=== PATIENT | female | born 1960 | race African-American/Black ===

== ENCOUNTER 2023-11-01 12:06 | Inpatient (IN) | payer BC ==
[2023-11-01] VITALS (37 sets, daily range): BP systolic 66–140; BP diastolic 52–119; PULSE 52–90; RESP 11–30; TEMP 98–98.6; O2SAT 99
[~2023-11-01] VITALS: Ht 170.2 cm; Wt 74.4 kg
[2023-11-01] MEDS ORDERED: NITROGLYCERIN 0.4MG TABLET SL SL PRN (12:30)
[2023-11-01] MEDS ORDERED: HEPARIN 1000 UNITS/ML 10ML ONE ×2 (12:37→12:55)
[2023-11-01] MEDS ORDERED: IODIXANOL 320MG/ML 100 ML BOTTLE IV ONE (12:37)
[2023-11-01] MEDS ORDERED: LIDOCAINE HCL 1% 10 MG/ML 10ML VIAL ONE (12:37)
[2023-11-01 12:40] LABS: HEMATOCRIT. 41.3 % (36.0-48.0); HEMOGLOBIN. 13.1 g/dL (12.0-16.0); MEAN CORPUSCULAR HEMOGLOBIN 23.7 pg (28.0-32.0); MEAN CORPUSCULAR HGB CONC 31.8 g/dL (31.0-37.0); MEAN CORPUSCULAR VOLUME 74.5 fL (81.0-99.0); MEAN PLATELET VOLUME 7.4 fl (7.4-10.4); PLATELET 537 x1000/uL (130-400); RED BLOOD CELL COUNT 5.55 mill/uL (4.2-5.4); RED CELL DISTRIBUTION WIDTH 19.2 % (11.6-14.6); WHITE BLOOD COUNT 12.2 x1000/uL (4.5-11.0)
[2023-11-01 12:41] LABS: DIFFERENTIAL COMMENT 1
[2023-11-01] MEDS: ONDANSETRON HCL 4MG/2ML INJ IV STA (12:41)
[2023-11-01] MEDS: HEPARIN 5000 UNITS/ML VIAL IV ONE (12:41)
[2023-11-01] MEDS: MORPHINE SULFATE 4 MG/ML CPJ (NOT FOR IM USE) IV STA (12:41)
[2023-11-01] MEDS: ASPIRIN 325MG EC TABLET PO ONE (12:41)
[2023-11-01] MEDS ORDERED: ATROPINE SULFATE 1MG/10ML SYR ONE (12:51)
[2023-11-01] MEDS ORDERED: EPINEPHRINE 0.1MG/ML (1:10,000) 10ML SYR ONE ×2 (12:51→13:26)
[2023-11-01] MEDS ORDERED: FENTANYL CITRATE/PF 50MCG/ML 2ML VIAL ONE (13:03)
[2023-11-01] MEDS ORDERED: MIDAZOLAM HCL 2 MG/2 ML VIAL ONE (13:03)
[2023-11-01 13:08] LABS: ALANINE AMINOTRANSFERASE < 7 IU/L (10-49); ASPARTATE AMINOTRANSFERASE 9 IU/L (<34); BILIRUBIN TOTAL 0.9 mg/dL (0.1-1.0); CALCIUM 9.6 mg/dL (8.7-10.4); CARBON DIOXIDE 24 mEq/L (21-32); CHLORIDE 106 mEq/L (98-107); CREATININE 0.6 mg/dL (0.6-1.0); GLUCOSE 221 mg/dL (70-105); PROTEIN TOTAL 7.5 g/dL (6.0-8.3); SODIUM 136 mEq/L (136-145); UREA NITROGEN BLOOD 7 mg/dL (9-23)
[2023-11-01 13:20] LABS: TROPONIN I HIGH SENSITIVITY 118 ng/L (3.0-34)
[2023-11-01] MEDS ORDERED: EPTIFIBATIDE 2 MG/ML 10ML VIAL IV ONE ×2 (13:26→13:44)
[2023-11-01] MEDS ORDERED: AMIODARONE HCL 50MG/ML 3ML VIAL IV ONE (13:30)
[2023-11-01] MEDS ORDERED: ATROPINE SULFATE 1MG/10ML SYR IV PRN (13:45)
[2023-11-01] MEDS ORDERED: ACETAMINOPHEN 325MG TABLET PO PRN ×3 (13:45→22:15)
[2023-11-01] MEDS ORDERED: EPTIFIBATIDE 100 ML IV SCH (13:45)
[2023-11-01] MEDS ORDERED: ASPIRIN 81MG TABLET PO NR (13:45)
[2023-11-01] MEDS ORDERED: ONDANSETRON HCL 4MG/2ML INJ IV PRN ×2 (13:45→22:15)
[2023-11-01] MEDS ORDERED: MORPHINE SULFATE 2 MG/ML CPJ (NOT FOR IM USE) IV PRN (13:45)
[2023-11-01] MEDS ORDERED: CARVEDILOL 3.125 MG TABLET PO NR (14:00)
[2023-11-01] MEDS ORDERED: TICAGRELOR 90 MG TABLET PO ONE (14:08)
[2023-11-01] MEDS ORDERED: DEXTROSE 50% WATER 50ML SYRINGE IV PRN (17:15)
[2023-11-01] MEDS: INSULIN LISPRO 100 UNITS/ML SUBCUT SCH (17:59)
[2023-11-01] MEDS: BLOOD SUGAR DIAGNOSTIC STRIP TEST SCH (17:59)
[2023-11-01 18:04] LABS: PARTIAL THROMBOPLASTIN TIME 47.5 sec (23.4-31.0); PROTHROMBIN TIME 10.9 sec (9.6-11.0)
[2023-11-01 21:40] LABS: PLATELET ESTIMATE INCREASED
[2023-11-01 21:41] LABS: ANISOCYTOSIS 1+; HYPOCHROMASIA 1+; MICROCYTOSIS 2+
[2023-11-01] MEDS: SODIUM CHLORIDE 0.45% 1,000 ML IV SCH (21:42)
[2023-11-01] MEDS: ATORVASTATIN CALCIUM 40MG TABLET PO SCH (21:43)
[2023-11-01] MEDS ORDERED: DIPHENHYDRAMINE 50MG/ML VIAL IV PRN (22:15)
[2023-11-01] MEDS ORDERED: MAGNESIUM/ALUMINUM HYDROXIDE/SIMETHICONE 30ML UDC PO PRN (22:15)
[2023-11-01] MEDS ORDERED: ZOLPIDEM TARTRATE 5MG TABLET PO PRN (22:15)
[2023-11-01] MEDS ORDERED: CLONIDINE 0.1MG TABLET PO PRN (22:15)
[2023-11-02] VITALS (33 sets, daily range): BP systolic 71–113; BP diastolic 40–87; PULSE 56–74; RESP 13–25; TEMP 98.1–98.9
[2023-11-02] MEDS: SODIUM CHLORIDE 0.9% INJ 3ML FLUSH IVF SCH (05:15)
[2023-11-02 07:03] LABS: HEMATOCRIT. 34.9 % (36.0-48.0); MEAN CORPUSCULAR HEMOGLOBIN 23.8 pg (28.0-32.0); MEAN CORPUSCULAR HGB CONC 31.6 g/dL (31.0-37.0); MEAN CORPUSCULAR VOLUME 75.3 fL (81.0-99.0); MEAN PLATELET VOLUME 7.3 fl (7.4-10.4); PLATELET 448 x1000/uL (130-400); RED BLOOD CELL COUNT 4.64 mill/uL (4.2-5.4); WHITE BLOOD COUNT 8.9 x1000/uL (4.5-11.0)
[2023-11-02 07:07] LABS: DIFFERENTIAL COMMENT 1
[2023-11-02] MEDS ORDERED: NALOXONE HCL 0.4MG/ML VIAL IV PRN (08:15)
[2023-11-02] MEDS: METFORMIN HCL 500MG TABLET PO SCH (09:02)
[2023-11-02] MEDS: CLOPIDOGREL 75MG TABLET PO SCH (09:02)
[2023-11-02 09:48] LABS: PLATELET ESTIMATE INCREASED
[2023-11-02 09:49] LABS: ANISOCYTOSIS 2+; HYPOCHROMASIA 1+; MICROCYTOSIS 1+
[2023-11-02 13:12] LABS: CARBON DIOXIDE 24 mEq/L (21-32); CHLORIDE 110 mEq/L (98-107); CHOLESTEROL 165 mg/dL (<200); CREATININE 0.7 mg/dL (0.6-1.0); GLUCOSE 127 mg/dL (70-105); HDL CHOLESTEROL 41 mg/dL (>65); LDL CHOLESTEROL 101 mg/dL (5-100); POTASSIUM 3.7 mEq/L (3.5-5.1); SODIUM 139 mEq/L (136-145); TRIGLYCERIDE 166 mg/dL (0-150); UREA NITROGEN BLOOD 6 mg/dL (9-23)
== END 2023-11-02 17:00 | disposition home or self-care (01) | DRG 322 ==
LOC: ER 12:06 → CVICU 12:51 → EDBEDREQ 12:53 → EDBEDREQTM 12:53
PROVIDERS: ADMIT Internal Medicine; ATTEND Internal Medicine
PROC: 027034Z Dilation of Coronary Artery, One Artery with Drug-eluting Intraluminal Device, Percutaneous Approach (ICD-10-PCS; principal; 2023-11-01)
PROC: 02C03ZZ Extirpation of Matter from Coronary Artery, One Artery, Percutaneous Approach (ICD-10-PCS; 2023-11-01)
PROC: 4A023N7 Measurement of Cardiac Sampling and Pressure, Left Heart, Percutaneous Approach (ICD-10-PCS; 2023-11-01)
PROC: B2111ZZ Fluoroscopy of Multiple Coronary Arteries using Low Osmolar Contrast (ICD-10-PCS; 2023-11-01)
PROC: B2151ZZ Fluoroscopy of Left Heart using Low Osmolar Contrast (ICD-10-PCS; 2023-11-01)
DX: I21.09 ST elevation (STEMI) myocardial infarction involving other coronary artery of anterior wall (principal); Q24.5 Malformation of coronary vessels; I10 Essential (primary) hypertension; E11.9 Type 2 diabetes mellitus without complications; I25.10 Atherosclerotic heart disease of native coronary artery without angina pectoris; E78.5 Hyperlipidemia, unspecified; Z90.710 Acquired absence of both cervix and uterus; Z79.899 Other long term (current) drug therapy; Z79.84 Long term (current) use of oral hypoglycemic drugs; Z79.82 Long term (current) use of aspirin; Z79.02 Long term (current) use of antithrombotics/antiplatelets
CPT/HCPCS: 36415; 71045; 80048; 80053; 80061; 82962; 83036; 84484; 85025; 85347; 86850; 86900; 92941; 92973; 93005; 93306; 93458; 99285; C1725; C1769; C1874; C1887; C1893; J0282; J0461; J1327; J1644; J2250; J2270; J2405; J3010; J3490; Q9967; J8499

== ENCOUNTER 2023-11-03 13:40 | Inpatient (IN) | payer BC ==
[~2023-11-03] VITALS: Ht 167.6 cm; Wt 70.1 kg
[2023-11-03] MEDS: CLOPIDOGREL 75MG TABLET PO SCH (14:00)
[2023-11-03] MEDS: METOPROLOL TARTRATE 25MG TABLET PO SCH (14:00)
[2023-11-03] MEDS: ASPIRIN 81MG TABLET PO SCH (14:09)
[2023-11-03 14:41] LABS: HEMATOCRIT. 34.7 % (36.0-48.0); HEMOGLOBIN. 11.3 g/dL (12.0-16.0); MEAN CORPUSCULAR HEMOGLOBIN 24.2 pg (28.0-32.0); MEAN CORPUSCULAR HGB CONC 32.6 g/dL (31.0-37.0); MEAN CORPUSCULAR VOLUME 74.4 fL (81.0-99.0); MEAN PLATELET VOLUME 7.5 fl (7.4-10.4); PLATELET 447 x1000/uL (130-400); RED BLOOD CELL COUNT 4.67 mill/uL (4.2-5.4); RED CELL DISTRIBUTION WIDTH 19.1 % (11.6-14.6); WHITE BLOOD COUNT 9.3 x1000/uL (4.5-11.0)
[2023-11-03 14:49] LABS: DIFFERENTIAL COMMENT 1
[2023-11-03 14:53] LABS: INR 0.9; PARTIAL THROMBOPLASTIN TIME 26.8 sec (23.4-31.0); PROTHROMBIN TIME 10.3 sec (9.6-11.0)
[2023-11-03 15:02] LABS: ALANINE AMINOTRANSFERASE 20 IU/L (10-49); ALBUMIN 4.4 g/dL (3.2-4.8); ASPARTATE AMINOTRANSFERASE 29 IU/L (<34); BILIRUBIN TOTAL 0.8 mg/dL (0.1-1.0); CALCIUM 8.9 mg/dL (8.7-10.4); CARBON DIOXIDE 22 mEq/L (21-32); CHLORIDE 107 mEq/L (98-107); CREATININE 0.7 mg/dL (0.6-1.0); GLUCOSE 92 mg/dL (70-105); POTASSIUM 3.9 mEq/L (3.5-5.1); PROTEIN TOTAL 7.2 g/dL (6.0-8.3); SODIUM 136 mEq/L (136-145); UREA NITROGEN BLOOD 9 mg/dL (9-23)
[2023-11-03 15:07] LABS: TROPONIN I HIGH SENSITIVITY 15512 ng/L (3.0-34)
[2023-11-03 15:24] LABS: ANISOCYTOSIS 2+; MICROCYTOSIS 1+; PLATELET ESTIMATE SLIGHTLY INCREASED
[2023-11-03 17:25] LABS: TROPONIN I HIGH SENSITIVITY 13667 ng/L (3.0-34)
[2023-11-03 18:30] VITALS: BP 147/79; PULSE 65; RESP 15; TEMP 98.4
[2023-11-03 18:37] VITALS: BP 147/79; PULSE 65; RESP 15; TEMP 98.4
[2023-11-03] MEDS ORDERED: HYDROCODONE/ACETAMINOPHEN 5/325MG TABLET PO PRN (19:30)
[2023-11-03] MEDS ORDERED: DEXTROSE 50% WATER 50ML SYRINGE IV PRN (19:30)
[2023-11-03 20:00] VITALS: BP 116/73; PULSE 71; RESP 16; TEMP 97.8
[2023-11-03] MEDS: BLOOD SUGAR DIAGNOSTIC STRIP TEST SCH (20:49)
[2023-11-03] MEDS: ATORVASTATIN CALCIUM 10MG TABLET PO SCH (21:02)
[2023-11-03] MEDS: INSULIN LISPRO 100 UNITS/ML SUBCUT SCH (21:03)
[2023-11-03 22:24] LABS: TROPONIN I HIGH SENSITIVITY 11307 ng/L (3.0-34)
[2023-11-04] VITALS: BP 104/77; PULSE 54; RESP 16; TEMP 98.2
[2023-11-04 04:00] VITALS: BP 105/63; PULSE 75; RESP 17; TEMP 97.6
[2023-11-04 04:29] LABS: HEMATOCRIT 35.6 % (36.0-48.0); HEMOGLOBIN 11.4 g/dL (12.0-16.0); MEAN CORPUSCULAR HEMOGLOBIN 23.7 pg (28.0-32.0); MEAN CORPUSCULAR HGB CONC 32.1 g/dL (31.0-37.0); MEAN CORPUSCULAR VOLUME 73.9 fL (81.0-99.0); PLATELET 437 x1000/uL (130-400); RED BLOOD CELL COUNT 4.82 mill/uL (4.2-5.4); RED CELL DISTRIBUTION WIDTH 18.5 % (11.6-14.6); WHITE BLOOD COUNT 8.3 x1000/uL (4.5-11.0)
[2023-11-04 05:00] LABS: CALCIUM 8.6 mg/dL (8.7-10.4); CARBON DIOXIDE 25 mEq/L (21-32); CHLORIDE 109 mEq/L (98-107); CREATININE 0.6 mg/dL (0.6-1.0); GLUCOSE 90 mg/dL (70-105); POTASSIUM 3.8 mEq/L (3.5-5.1); SODIUM 139 mEq/L (136-145); UREA NITROGEN BLOOD 7 mg/dL (9-23)
[2023-11-04 05:08] LABS: TROPONIN I HIGH SENSITIVITY 11319 ng/L (3.0-34)
[2023-11-04 08:00] VITALS: BP 101/62; PULSE 69; RESP 18; TEMP 98.4
[2023-11-04] MEDS ORDERED: ASPIRIN 81MG TABLET PO SCH (09:00)
[2023-11-04] MEDS ORDERED: CLOPIDOGREL 75MG TABLET PO SCH (09:00)
[2023-11-04] MEDS ORDERED: METOPROLOL SUCCINATE 50MG ER TABLET PO SCH (09:00)
[2023-11-04] MEDS: ACETAMINOPHEN 325MG TABLET PO PRN (09:23)
[2023-11-04 12:00] VITALS: BP 106/74; PULSE 62; RESP 18; TEMP 98.6
[2023-11-04 16:00] VITALS: BP 104/77; PULSE 63; RESP 18; TEMP 98.4
[2023-11-04 20:10] VITALS: BP 134/78; PULSE 69; RESP 30; TEMP 97.4
[2023-11-04] MEDS: HYDROCORTISONE 1% OINT 28.35GM TOP SCH (21:01)
[2023-11-05 00:10] VITALS: BP 93/74; PULSE 56; RESP 16; TEMP 98.2
[2023-11-05 04:10] VITALS: BP 127/72; PULSE 57; RESP 20; TEMP 98.1
[2023-11-05 08:00] VITALS: BP 104/70; PULSE 60; RESP 15; TEMP 97
[2023-11-05] MEDS ORDERED: IOHEXOL-350 100 ML BOTTLE ONE (09:47)
[2023-11-05 12:00] VITALS: BP 107/58; PULSE 61; RESP 17; TEMP 97
[2023-11-05 16:00] VITALS: BP 115/75; PULSE 59; RESP 18; TEMP 98
[2023-11-05 20:05] VITALS: BP 120/88; PULSE 64; RESP 20; TEMP 98.1
[2023-11-05] MEDS: ATORVASTATIN CALCIUM 40MG TABLET PO SCH (21:54)
[2023-11-06 00:05] VITALS: BP 126/87; PULSE 60; RESP 21; TEMP 97.3
[2023-11-06 04:05] VITALS: BP 104/60; PULSE 58; RESP 14; TEMP 97.1
[2023-11-06 08:00] VITALS: BP 108/70; PULSE 57; RESP 17; TEMP 98.4
[2023-11-06 09:23] LABS: HEMATOCRIT. 36.2 % (36.0-48.0); HEMOGLOBIN. 11.7 g/dL (12.0-16.0); MEAN CORPUSCULAR HEMOGLOBIN 24.1 pg (28.0-32.0); MEAN CORPUSCULAR HGB CONC 32.3 g/dL (31.0-37.0); MEAN CORPUSCULAR VOLUME 74.5 fL (81.0-99.0); MEAN PLATELET VOLUME 7.8 fl (7.4-10.4); PLATELET 481 x1000/uL (130-400); RED BLOOD CELL COUNT 4.85 mill/uL (4.2-5.4); RED CELL DISTRIBUTION WIDTH 18.7 % (11.6-14.6); WHITE BLOOD COUNT 7.1 x1000/uL (4.5-11.0)
[2023-11-06 09:29] LABS: DIFFERENTIAL COMMENT 1
[2023-11-06 10:05] LABS: CALCIUM 9.4 mg/dL (8.7-10.4); CARBON DIOXIDE 27 mEq/L (21-32); CHLORIDE 107 mEq/L (98-107); CREATININE 0.7 mg/dL (0.6-1.0); GLUCOSE 107 mg/dL (70-105); POTASSIUM 3.9 mEq/L (3.5-5.1); SODIUM 141 mEq/L (136-145); UREA NITROGEN BLOOD 9 mg/dL (9-23)
[2023-11-06 12:00] VITALS: BP 120/88; PULSE 64; RESP 20; TEMP 98.1
[2023-11-06] MEDS ORDERED: NALOXONE HCL 0.4MG/ML VIAL IV PRN (12:45)
[2023-11-06] MEDS ORDERED: ASPI-1497 MT (15:38)
[2023-11-06] MEDS ORDERED: LIP40 MT (15:38)
[2023-11-06] MEDS ORDERED: METO25TA6 MT (15:38)
[2023-11-06] MEDS ORDERED: CLOP-31 MT (15:38)
[2023-11-06 16:00] VITALS: BP 111/74; PULSE 65; RESP 21; TEMP 98.7
[2023-11-06 16:34] VITALS: BP 120/88; PULSE 64; TEMP 98.1; O2SAT 100
[2023-11-06 18:11] LABS: ATYPICAL LYMPHOCYTES 11; PLATELET ESTIMATE SLIGHTLY INCREASED
== END 2023-11-06 16:30 | disposition home or self-care (01) | DRG 281 ==
LOC: ER 14:54 → 3WST 16:48 → EDBEDREQTM 16:53 → EDBEDREQ 16:53
PROVIDERS: ADMIT Internal Medicine; ATTEND Internal Medicine
DX: I21.4 Non-ST elevation (NSTEMI) myocardial infarction (principal); I47.20 Ventricular tachycardia, unspecified; Q24.5 Malformation of coronary vessels; E11.9 Type 2 diabetes mellitus without complications; Z20.822 Contact with and (suspected) exposure to COVID-19; I10 Essential (primary) hypertension; E78.5 Hyperlipidemia, unspecified; I25.10 Atherosclerotic heart disease of native coronary artery without angina pectoris; Z79.02 Long term (current) use of antithrombotics/antiplatelets; Z79.899 Other long term (current) drug therapy; Z87.891 Personal history of nicotine dependence; Z90.710 Acquired absence of both cervix and uterus; Z98.61 Coronary angioplasty status
CPT/HCPCS: 36415; 71045; 75571; 80048; 80053; 82962; 83036; 83880; 84484; 85025; 85027; 87426; 93005; 99291; J1815; Q9967